=== PATIENT | male | born 1995 | race Two or more races ===

== ENCOUNTER 2016-06-01 14:56 | Emergency (ER) | payer MEDICAID ==
[~2016-06-01] VITALS: Ht 170.2 cm; Wt 88.5 kg
[2016-06-01 15:06] VITALS: BP 112/58
[2016-06-01 15:37] LABS: Basophils # (auto) 0 uL; Basophils % (auto) 0.5 % (0.0-2.0); Eosinophils # (auto) 0.3 uL; Eosinophils % (auto) 5.6 % (0.0-7.0); Hemoglobin 14.1 g/dL (13.5-17.5); Lymphocytes # (auto) 1.7 uL; Lymphocytes % (auto) 28.4 % (10.0-50.0); Mean Corpuscular Hemoglobin 31.3 pg (28.0-32.0); Mean Corpuscular Hgb Conc. 33.5 g/dL (32.0-36.0); Mean Corpuscular Volume 93.5 fL (80.0-100.0); Mean Platelet Volume 8.2 fL (7.4-10.4); Monocytes # (auto) 0.5 uL; Monocytes % (auto) 7.9 % (0.0-12.0); Neutrophils # (auto) 3.4 uL; Neutrophils % (auto) 57.6 % (37.0-80.0); Platelet Count (auto) 233 10^3/uL (140-450); Red Cell Distribution Width 12.9 % (11.6-16.0)
[2016-06-01 15:49] LABS: Albumin 3.9 g/dL (3.4-5.0); BUN/Creatinine Ratio 16.7; Calcium 8.8 mg/dL (8.5-10.1); Potassium 4.1 mmol/L (3.5-5.1)
[2016-06-01 15:52] LABS: Bilirubin, Total 0.4 mg/dL (0.2-1.0)
== END 2016-06-01 20:30 | disposition left against medical advice (07) ==
LOC: ER 15:23
DX: R52 Pain, unspecified (principal); Z53.21 Procedure and treatment not carried out due to patient leaving prior to being seen by health care provider
CPT/HCPCS: 36415; 80053; 85025

== ENCOUNTER 2016-06-02 11:11 | Emergency (ER) | payer MEDICAID ==
[~2016-06-02] VITALS: Ht 170.2 cm; Wt 86.2 kg
[2016-06-02 11:20] VITALS: BP 164/58
[2016-06-02] MEDS ORDERED: KETOROLAC TROMETH 60MG/2ML VIAL IM ONE (13:00)
== END 2016-06-02 13:56 | disposition home or self-care (01) ==
LOC: ER 11:25
DX: S39.012A Strain of muscle, fascia and tendon of lower back, initial encounter (principal); F17.210 Nicotine dependence, cigarettes, uncomplicated; F12.10 Cannabis abuse, uncomplicated; X50.0XXA Overexertion from strenuous movement or load, initial encounter; Y93.89 Activity, other specified; Y99.8 Other external cause status; Y92.89 Other specified places as the place of occurrence of the external cause
CPT/HCPCS: 96372; 99283; J1885

== ENCOUNTER 2016-08-19 21:44 | Emergency (ER) | payer MEDICAID ==
[~2016-08-19] VITALS: Ht 172.7 cm; Wt 79.4 kg
[2016-08-19 21:54] VITALS: BP 132/72
[2016-08-19] MEDS ORDERED: LORazepam 2MG/ML-1ML VIAL IM ONE (23:45)
== END 2016-08-20 00:25 | disposition home or self-care (01) ==
LOC: EDBD 21:44 → ER 21:49
DX: F41.0 Panic disorder [episodic paroxysmal anxiety] (principal); F17.210 Nicotine dependence, cigarettes, uncomplicated; F12.10 Cannabis abuse, uncomplicated
CPT/HCPCS: 96372; 99284; J2060

== ENCOUNTER 2016-08-20 07:49 | Emergency (ER) | payer MEDICAID ==
[~2016-08-20] VITALS: Ht 170.2 cm; Wt 79.4 kg
[2016-08-20 08:10] VITALS: BP 123/70
[2016-08-20] MEDS ORDERED: LORazepam 2MG/ML-1ML VIAL IM ONE (08:30)
== END 2016-08-20 10:42 | disposition home or self-care (01) ==
LOC: ER 07:49
DX: F41.9 Anxiety disorder, unspecified (principal); F17.210 Nicotine dependence, cigarettes, uncomplicated; F12.10 Cannabis abuse, uncomplicated
CPT/HCPCS: 96372; 99284; J2060

== ENCOUNTER 2016-08-28 18:36 | Emergency (ER) | payer MEDICAID ==
[~2016-08-28] VITALS: Ht 172.7 cm; Wt 81.6 kg
[2016-08-28 20:12] LABS: Basophils # (auto) 0 uL; Basophils % (auto) 0.4 % (0.0-2.0); CONDITION Y; Eosinophils # (auto) 0.2 uL; Eosinophils % (auto) 3.7 % (0.0-7.0); Hematocrit 41.1 % (41.0-53.0); Hemoglobin 13.9 g/dL (13.5-17.5); Lymphocytes # (auto) 2.4 uL; Mean Corpuscular Hemoglobin 31.2 pg (28.0-32.0); Mean Corpuscular Hgb Conc. 33.9 g/dL (32.0-36.0); Mean Corpuscular Volume 92.1 fL (80.0-100.0); Mean Platelet Volume 8.2 fL (7.4-10.4); Monocytes # (auto) 0.7 uL; Monocytes % (auto) 11.3 % (0.0-12.0); Neutrophils # (auto) 2.7 uL; Neutrophils % (auto) 44.6 % (37.0-80.0); Platelet Count (auto) 245 10^3/uL (140-450); Red Cell Distribution Width 13.3 % (11.6-16.0)
[2016-08-28 20:33] LABS: Albumin 3.9 g/dL (3.4-5.0); Anion Gap 10 (5-15); Blood Urea Nitrogen 9 mg/dL (7-18); Calcium 8.5 mg/dL (8.5-10.1); Carbon Dioxide 28 mmol/L (21-32); Chloride 109 mmol/L (98-107); Glucose 90 mg/dL (74-106); Potassium 3.9 mmol/L (3.5-5.1); Sodium 147 mmol/L (136-145)
[2016-08-28 20:35] LABS: Aspartate Aminotransferase 190 U/L (15-37); BUN/Creatinine Ratio 9.4; GFR African American 125 mL/min; GFR Non-African American 103 mL/min
[2016-08-28 20:37] LABS: Alkaline Phosphatase 84 U/L (45-117); Bilirubin, Total 0.3 mg/dL (0.2-1.0); Total Protein 7.4 g/dL (6.4-8.2)
[2016-08-28 21:03] LABS: Salicylate < 1.7 mg/dL (2.8-20.0)
[2016-08-28 21:04] LABS: Acetaminophen < 2.0 ug/mL (10-30)
[2016-08-28 21:56] LABS: Urine Bilirubin Negative (Negative); Urine Blood Negative /uL (Negative); Urine Color Yellow (Yellow); Urine Glucose Normal (Normal); Urine Ketone Negative (Negative); Urine Mucus FEW (None Seen); Urine Nitrite Negative (Negative); Urine RBC 1 /hpf (0 - 3); Urine Sperm PRESENT /hpf (None Seen); Urine Squamous Epithelial Cell FEW /hpf (<5); Urine Urobilinogen Normal (Negative)
[2016-08-28] MEDS ORDERED: LORazepam 0.5 MG TAB PO ONE (23:15)
[2016-08-29] MEDS ORDERED: IBUPROFEN 600 MG TAB PO ONE (23:15)
[2016-08-29] MEDS ORDERED: LORazepam 0.5 MG TAB PO ONE (23:15)
[2016-08-31 10:46] VITALS: BP 121/73
== END 2016-08-31 11:23 | disposition short-term general hospital (02) ==
LOC: ER 18:39
DX: F41.0 Panic disorder [episodic paroxysmal anxiety] (principal); R45.851 Suicidal ideations; F41.9 Anxiety disorder, unspecified; Z01.818 Encounter for other preprocedural examination; M54.5 Low back pain; F32.9 Major depressive disorder, single episode, unspecified; F12.10 Cannabis abuse, uncomplicated; F10.10 Alcohol abuse, uncomplicated; F17.210 Nicotine dependence, cigarettes, uncomplicated
CPT/HCPCS: 36415; 80053; 80307; 80320; 80329; 81001; 85025